=== PATIENT | female | born 1970 | race African-American/Black ===

== ENCOUNTER 2016-07-20 04:33 | Emergency (ER) | payer OTHER ==
[~2016-07-20] VITALS: Ht 182.9 cm; Wt 172.4 kg
[~2016-07-20 04:33] MED LIST: AMLO5TAB2 PO; HYDR12.527 PO; LISI40TA PO
[2016-07-20 06:22] VITALS: BP 169/103
[2016-07-20] MEDS ORDERED: cefTRIAXone SOD 1,000 MG VL IM ONE (06:30)
[2016-07-20] MEDS ORDERED: LIDOCAINE VISCOUS 2% 15ML UD PO ONE (06:30)
[2016-07-20] MEDS ORDERED: methylPREDNISolone SOD SUCC 125 MG/2 ML VL IM ONE (06:30)
== END 2016-07-20 07:03 | disposition home or self-care (01) ==
LOC: ER 04:33
DX: J03.90 Acute tonsillitis, unspecified (principal); H66.91 Otitis media, unspecified, right ear; J44.9 Chronic obstructive pulmonary disease, unspecified; I10 Essential (primary) hypertension; F17.210 Nicotine dependence, cigarettes, uncomplicated; Z79.899 Other long term (current) drug therapy
CPT/HCPCS: 96372; 99284; J0696; J2930

== ENCOUNTER 2016-12-24 11:58 | Emergency (ER) | payer OTHER ==
[~2016-12-24] VITALS: Ht 182.9 cm; Wt 167.8 kg
[2016-12-24 12:01] VITALS: BP 184/84
== END 2016-12-24 15:10 | disposition left against medical advice (07) ==
LOC: ER 11:58
DX: R10.9 Unspecified abdominal pain (principal); Z53.21 Procedure and treatment not carried out due to patient leaving prior to being seen by health care provider

== ENCOUNTER 2017-08-01 04:03 | Emergency (ER) | payer OTHER ==
[~2017-08-01] VITALS: Ht 185.4 cm; Wt 154.2 kg
[2017-08-01 05:40] VITALS: BP 146/78
[2017-08-01] MEDS ORDERED: MAGNESIUM CITRATE SOLUTION 300 ML BTL PO ONE (05:45)
[2017-08-01 05:56] LABS: Basophils # (auto) 0 uL; Basophils % (auto) 0.7 % (0.0-2.0); Eosinophils # (auto) 0.1 uL; Hemoglobin 11.3 g/dL (12.2-16.2); Nucleated Red Blood Cells % 0.1 %
[2017-08-01 05:57] LABS: Eosinophils % (auto) 2.3 % (0.0-7.0); Lymphocytes % (auto) 31.8 % (10.0-50.0); Mean Corpuscular Hgb Conc. 32.2 g/dL (32.0-36.0); Mean Corpuscular Volume 82.4 fL (80.0-100.0); Monocytes # (auto) 0.7 uL; Monocytes % (auto) 11.4 % (0.0-12.0); Neutrophils # (auto) 3.4 uL; Neutrophils % (auto) 53.8 % (37.0-80.0); Platelet Count (auto) 274 10^3/uL (140-450); Red Blood Cells 4.25 10^6/uL (4.0-5.20); White Blood Cell 6.3 10^3/uL (4.4-10.8)
[2017-08-01 05:59] LABS: Mean Corpuscular Hemoglobin 26.9 pg (28.0-32.0)
[2017-08-01 06:06] LABS: Albumin 3.2 g/dL (3.4-5.0); BUN/Creatinine Ratio 18.7; Calcium 8.1 mg/dL (8.5-10.1); Potassium 4.1 mmol/L (3.5-5.1)
[2017-08-01 06:09] LABS: Bilirubin, Total 0.2 mg/dL (0.2-1.0); Total Protein 7.5 g/dL (6.4-8.2)
[2017-08-01] MEDS ORDERED: FLEET ENEMA(ADULT) 135 ML PR ONE (06:45)
== END 2017-08-01 07:28 | disposition home or self-care (01) ==
LOC: ER 04:06
DX: R10.84 Generalized abdominal pain (principal); K59.00 Constipation, unspecified; I10 Essential (primary) hypertension; R11.0 Nausea; Z79.899 Other long term (current) drug therapy
CPT/HCPCS: 36415; 74176; 80053; 85025

== ENCOUNTER 2018-09-12 08:34 | Emergency (ER) | payer MEDICAID, OTHER ==
[~2018-09-12] VITALS: Ht 185.4 cm; Wt 176.9 kg
[~2018-09-12 08:34] MED LIST changes: +AMLO5TAB15 PO; -AMLO5TAB2 PO; -HYDR12.527 PO; +HYDR12.55 PO
[2018-09-12 08:45] VITALS: BP 153/98
[2018-09-12] MEDS ORDERED: cefTRIAXone SOD 1,000 MG VL IM ONE (09:00)
== END 2018-09-12 09:30 | disposition home or self-care (01) ==
LOC: ER 08:35
DX: J03.90 Acute tonsillitis, unspecified (principal); M79.10 Myalgia, unspecified site; I10 Essential (primary) hypertension; Z79.899 Other long term (current) drug therapy
CPT/HCPCS: 96372; 99283; J0696

== ENCOUNTER 2018-09-27 07:19 | Emergency (ER) | payer MEDICAID ==
[~2018-09-27] VITALS: Ht 185.4 cm; Wt 176.9 kg
[2018-09-27 08:04] LABS: Basophils # (auto) 0 uL; Eosinophils # (auto) 0.1 uL; White Blood Cell 5.3 10^3/uL (4.4-10.8)
[2018-09-27 08:07] LABS: Basophils % (auto) 0.5 % (0.0-2.0); Eosinophils % (auto) 1.1 % (0.0-7.0); Hemoglobin 11.1 g/dL (12.2-16.2); Lymphocytes # (auto) 1.5 uL; Lymphocytes % (auto) 27.4 % (10.0-50.0); Mean Corpuscular Hemoglobin 26.2 pg (28.0-32.0); Mean Corpuscular Hgb Conc. 31.7 g/dL (32.0-36.0); Mean Corpuscular Volume 82.4 fL (80.0-100.0); Monocytes # (auto) 0.5 uL; Monocytes % (auto) 8.9 % (0.0-12.0); Neutrophils # (auto) 3.3 uL; Neutrophils % (auto) 62.1 % (37.0-80.0); Nucleated Red Blood Cells % 0.1 %; Platelet Count (auto) 274 10^3/uL (140-450); Red Blood Cells 4.25 10^6/uL (4.0-5.20)
[2018-09-27 08:21] LABS: Alanine Aminotransferase 32 U/L (13-56); Albumin 3.2 g/dL (3.4-5.0); Anion Gap 10 (5-15); Aspartate Aminotransferase 20 U/L (15-37); Blood Urea Nitrogen 13 mg/dL (7-18); Calcium 8.5 mg/dL (8.5-10.1); Carbon Dioxide 24 mmol/L (21-32); Chloride 106 mmol/L (98-107); GFR African American 97 mL/min; GFR Non-African American 80 mL/min; Glucose 87 mg/dL (74-106); Potassium 3.7 mmol/L (3.5-5.1); Sodium 140 mmol/L (136-145)
[2018-09-27 08:26] LABS: Alkaline Phosphatase 91 U/L (45-117); Bilirubin, Total 0.3 mg/dL (0.2-1.0); Total Protein 7.4 g/dL (6.4-8.2)
[2018-09-27 10:07] LABS: Urine WBC None Seen /hpf (0 - 5)
[2018-09-27 10:18] LABS: Urine Bacteria NONE SEEN /hpf (None Seen); Urine Blood Negative /uL (Negative); Urine Specific Gravity 1.015 (1.001-1.035)
[2018-09-27 10:23] VITALS: BP 151/95
[2018-09-27] MEDS ORDERED: FUROSEMIDE 40 MG/4 ML VIAL IV ONE (11:45)
[2018-09-27] MEDS ORDERED: SPIRONOLACTONE 25 MG TAB PO ONE (11:45)
== END 2018-09-27 12:52 | disposition home or self-care (01) ==
LOC: ER 07:19
DX: I10 Essential (primary) hypertension (principal); R60.9 Edema, unspecified; E44.1 Mild protein-calorie malnutrition; R09.89 Other specified symptoms and signs involving the circulatory and respiratory systems; F17.210 Nicotine dependence, cigarettes, uncomplicated; Z68.43 Body mass index [BMI] 50.0-59.9, adult
CPT/HCPCS: 36415; 71046; 80053; 81001; 83880; 84484; 85025; 93005; 96374; 99284; J1940

== ENCOUNTER 2018-11-10 00:12 | Emergency (ER) | payer MEDICAID ==
[~2018-11-10] VITALS: Ht 185.4 cm; Wt 185.5 kg
[2018-11-10 00:51] VITALS: BP 149/99
[2018-11-10] MEDS ORDERED: KETOROLAC TROMETH 60MG/2ML VIAL IM ONE (02:45)
== END 2018-11-10 03:06 | disposition home or self-care (01) ==
LOC: ER 00:15
DX: K04.7 Periapical abscess without sinus (principal); K03.81 Cracked tooth; K02.9 Dental caries, unspecified; I10 Essential (primary) hypertension; F17.210 Nicotine dependence, cigarettes, uncomplicated; Z79.899 Other long term (current) drug therapy
CPT/HCPCS: 96372; 99283; J1885